=== PATIENT | female | born 1995 | race Two or more races ===

== ENCOUNTER 2019-01-25 21:47 | Emergency (ER) | payer MEDICAID ==
[~2019-01-25] VITALS: Ht 165.1 cm; Wt 105.8 kg
[2019-01-25 22:26] VITALS: BP 144/68
== END 2019-01-25 22:26 | disposition home or self-care (01) ==
LOC: ED 21:47
DX: H10.89 Other conjunctivitis (principal); J02.9 Acute pharyngitis, unspecified; F32.9 Major depressive disorder, single episode, unspecified